=== PATIENT | male | born 1960 | race American Indian/Alaskan Native ===

== ENCOUNTER 2017-03-03 09:48 | Outpatient (CLI) | payer MEDICAID ==
[2017-03-03 11:00] LABS: Blood Urea Nitrogen 16 mg/dL (9-20)
--- NOTE | 2017-03-03 12:03 | Magnetic Resonance Report ---
MRI BRAIN WITH AND WITHOUT CONTRAST INDICATION: Multiple sclerosis. COMPARISON: None similar at this institution. FINDINGS: Multiplanar and multisequence MRI of the brain performed before and after 15 mL MultiHance intravenously demonstrates normal ventricles and sulci without acute infarct, hemorrhage, mass effect or midline shift. No abnormal extra-axial masses or fluid collections. Normal major intracranial vascular flow voids. No suspicious abnormal enhancement. Normal posterior fossa structures with symmetric seventh and eighth nerve complexes. Symmetric, grossly unremarkable eye globes. Mild right maxillary sinusitis inferiorly possible. 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 Mild right mastoiditis. Cleared left mastoid air cells. Normal midline structures without evidence of Chiari malformation. CONCLUSION: No acute intracranial MRI abnormality with few other incidental findings, as described. Thank you for the opportunity to participate in this patient's care.
== END 2017-03-03 09:49 | disposition home or self-care (01) ==
LOC: MRI 09:48
PROVIDERS: ATTEND Psychiatry & Neurology Neurology
DX: G35 Multiple sclerosis (principal); J32.0 Chronic maxillary sinusitis; H70.91 Unspecified mastoiditis, right ear
CPT/HCPCS: 36415; 70553; 82565; 84520; A9577

== ENCOUNTER 2017-03-16 07:04 | Day surgery (SDC) | payer MEDICAID ==
[2017-03-16] MEDS ORDERED: NACL 0.9% 500 ML 500 ML IV SCH (08:00)
[2017-03-16 08:12] LABS: Basophils % (Auto) 0.8 % (0.0-1.8); Eosinophils % (Auto) 1.6 % (0.0-4.3); Hematocrit 43.2 % (35.5-45.6); Hemoglobin 14.1 gm/dl (11.8-15.2); Mean Corpuscular HGB Conc 33 % (32-34); Mean Corpuscular Hemoglobin 29 pg (28-32); Mean Corpuscular Volume 87 fl (84-94); Platelet Count 301 K/mm3 (140-440); Red Blood Count 4.94 M/mm3 (3.65-5.03); Red Cell Distribution Width 14.4 % (13.2-15.2); White Blood Count 5.8 K/mm3 (4.5-11.0)
[2017-03-16 08:22] LABS: INR 1.03 (0.87-1.13)
[2017-03-16 08:23] LABS: Anion Gap 19 mmol/L; Blood Urea Nitrogen 12 mg/dL (9-20); Carbon Dioxide 25 mmol/L (22-30); Chloride 102.9 mmol/L (98-107); Glucose 141 mg/dL (75-100); Potassium 4.4 mmol/L (3.6-5.0); Sodium 142 mmol/L (137-145)
[2017-03-16] MEDS ORDERED: ECOTRIN PO ONE (09:00)
[2017-03-16] MEDS ORDERED: CALAN ONE (09:26)
[2017-03-16] MEDS ORDERED: XYLOCAINE 2% INFILTRATI ONE (09:26)
[2017-03-16] MEDS ORDERED: HEPARIN/NS 5000 UNIT/500ML(CATH LAB) 1,000 ML IR ONE (09:26)
[2017-03-16] MEDS ORDERED: HEPARIN 10,000 UNITS/10 ML ONE (09:26)
[2017-03-16] MEDS ORDERED: VERSED ONE (09:27)
[2017-03-16] MEDS ORDERED: NITROGLYCERIN SYRINGE 3 ML ONE (09:27)
[2017-03-16] MEDS ORDERED: SUBLIMAZE ONE (09:27)
--- NOTE | 2017-03-16 10:34 | Discharge Summary ---
Short Stay Discharge Plan Activity: advance as tolerated Weight Bearing Status: Full Weight Bearing Diet: low fat, low cholesterol, low salt, diabetic Wound: keep clean and dry Special Instructions: no heavy lifting (3 days), hold Metformin (48hrs only) Follow up with: VASILE JANG MD [Primary Care Provider] - 7 Days BANDAR CAMARA MD [Staff Physician] - 7 Days
[2017-03-16] MEDS ORDERED: NACL 0.9% 1000 ML 1,000 ML IV SCH (11:00)
--- NOTE | 2017-03-16 13:43 | Cardiac Catherization Report ---
CARDIAC CATHETERIZATION REASON FOR PROCEDURE: Chest pain. PROCEDURE: The patient was prepped and draped in a sterile fashion after informed consent. The right radial artery was entered using the Seldinger technique followed by placement of a 6-Urdu hydrophilic sheath. Routine radial cocktail was administered via the sheath. The right coronary artery was inadvertently cannulated using a #4 left Lucian catheter. Following that, a #3.0 left Lucian was used for left coronary angiography. Pigtail catheter was used for left ventricle angiography. The catheters were removed, sheath removed, and hemostasis achieved using manual compression. The patient was returned to the postprocedure unit in stable condition. There were no complications. FINDINGS: HEMODYNAMICS: Left ventricle end diastolic pressure was 25 to 30, following coronary angiography. Ascending aortic pressure was 172/99. There was no significant pressure gradient on pullback across the aortic valve. CORONARY ANGIOGRAPHY: The left main coronary artery was angiographically normal. The proximal left anterior descending artery was angiographically normal. large mid diagonal branch, we noted mild narrowing of the mid LAD. Apart from the narrowing of the LAD after the mid diagonal branch, the rest of the LAD system and diagonal branches were angiographically normal. The circumflex artery and its obtuse marginal branches were angiographically normal. The right coronary artery was dominant and similarly angiographically normal. There was normal left ventricular systolic function, ejection fraction 60%. CONCLUSION: 1. Mild narrowing of the mid LAD, otherwise essentially angiographically normal coronary arteries. 2. Normal left ventricular systolic function, ejection fraction 60%. RECOMMENDATION: Risk factor modification and medical therapy. [facility]# [id number] CA/NTS
[2017-03-16 14:31] VITALS: BP 133/84
== END 2017-03-16 14:45 | disposition home or self-care (01) ==
LOC: CATHLABREC 07:04
PROVIDERS: ATTEND Internal Medicine Cardiovascular Disease
DX: I25.10 Atherosclerotic heart disease of native coronary artery without angina pectoris (principal); E11.40 Type 2 diabetes mellitus with diabetic neuropathy, unspecified; I10 Essential (primary) hypertension; E78.5 Hyperlipidemia, unspecified; Z79.84 Long term (current) use of oral hypoglycemic drugs; Z79.82 Long term (current) use of aspirin; Z79.899 Other long term (current) drug therapy; Z98.890 Other specified postprocedural states
CPT/HCPCS: 36415; 80048; 85025; 85610; 85730; 93005; 93010; 93458; C1894; J1644; J2250; J3010; J7040; Q9967

== ENCOUNTER 2017-08-11 11:15 | Emergency (ER) | payer SELFPAY ==
[2017-08-11 12:17] LABS: Eosinophils # (Auto) 0.1 K/mm3 (0.0-0.4); Eosinophils % (Auto) 1.6 % (0.0-4.3); Hematocrit 42.1 % (35.5-45.6); Hemoglobin 14.1 gm/dl (11.8-15.2); Lymphocytes # (Auto) 1.6 K/mm3 (1.2-5.4); Lymphocytes % (Auto) 35.4 % (13.4-35.0); Mean Corpuscular HGB Conc 34 % (32-34); Mean Corpuscular Hemoglobin 30 pg (28-32); Mean Corpuscular Volume 88 fl (84-94); Monocytes # (Auto) 0.3 K/mm3 (0.0-0.8); Monocytes % (Auto) 6.4 % (0.0-7.3); Platelet Count 287 K/mm3 (140-440); Red Blood Count 4.77 M/mm3 (3.65-5.03); Red Cell Distribution Width 14.3 % (13.2-15.2)
[2017-08-11 12:26] LABS: BUN/Creatinine Ratio 10; Blood Urea Nitrogen 10 mg/dL (9-20); Calcium 9.6 mg/dL (8.4-10.2); Hemolysis Index 5
[2017-08-11 12:27] LABS: INR 0.99 (0.87-1.13)
[2017-08-11 12:28] LABS: Partial Thromboplastin Time 27.2 Sec. (24.2-36.6)
--- NOTE | 2017-08-11 12:52 | Cat Scan Report ---
CT HEAD WITHOUT CONTRAST: HISTORY: Headache. TECHNIQUE: Sequential 2.5mm CT images. COMPARISON: none. FINDINGS: Cerebral Parenchyma: Within normal limits. Cerebellum: Within normal limits. Brainstem: Within normal limits. Ventricles: Normal. Sella: Normal. Extra-axial spaces: Normal. Basal Cisterns: Normal. Intracranial Hemorrhage: None. Midline Shift: None. Calvarium: Normal. Sinuses: Normal. Mastoid Air Cells: Normal. Visualized Orbits: Normal. IMPRESSION: Cranial CT scan within normal limits.
[2017-08-11 22:25] VITALS: BP 190/108
--- NOTE | 2017-08-11 23:43 | Emergency Department Report ---
ED General Adult HPI - General Chief complaint: Headache Stated complaint: NERVE PAIN Time Seen by Provider: 08/11/17 22:37 Source: patient Mode of arrival: Ambulatory Limitations: No Limitations - History of Present Illness Initial comments: Patient with history of chronic nerve pain says he takes gabapentin Elavil he says he needs something else C7 and acute attack. Patient has been seen by neurologist had a normal MRI in the recent past denies any chest pain denies any speech or visual complaints denies any gait problems denies any weakness denies any chest pain or abdominal pain or other complaints -: days(s), week(s), month(s), unknown Severity scale (0 -10): 5 - Related Data Home Medications Medication Instructions Recorded Confirmed Last Taken AtorvaSTATin [Lipitor] 10 mg PO QHS 03/16/17 03/16/17 03/15/17 Brimonidine Tartrate [Brimonidine 1 drop OU BID 03/16/17 03/16/17 03/15/17 Tartrate 0.2%] Epitol 200 mg PO BID 03/16/17 03/14/17 Latanoprost 0.005% [Xalatan 0.005%] 1 drop OP DAILY 03/16/17 03/16/17 03/15/17 Losartan [Cozaar] 25 mg PO QDAY 03/16/17 03/16/17 03/15/17 Metoprolol [Lopressor TAB] 25 mg PO DAILY 03/16/17 03/16/17 03/15/17 Timolol 0.5% [Timoptic] 1 drops OP BID 03/16/17 03/16/17 03/15/17 Previous Rx's Medication Instructions Recorded Last Taken Type traMADol [Ultram] 50 mg PO Q6HR PRN 4 Days #14 tablet 08/11/17 Unknown Rx Allergies Allergy/AdvReac Type Severity Reaction Status Date / Time No Known Allergies Allergy Unverified 03/03/17 09:48 ED Review of Systems ROS: Stated complaint: NERVE PAIN Other details as noted in HPI Comment: All other systems reviewed and negative Respiratory: denies: shortness of breath, SOB with exertion, SOB at rest, stridor, wheezing Cardiovascular: denies: chest pain, palpitations, dyspnea on exertion, orthopnea , edema, syncope, paroxysmal nocturnal dyspnea Gastrointestinal: denies: abdominal pain, nausea, vomiting, diarrhea, constipation, hematemesis, melena, hematochezia Musculoskeletal: denies: joint swelling, arthralgia, myalgia Skin: denies: change in color, change in hair/nails, pruritus Neurological: paresthesias. denies: headache, weakness, numbness, confusion, abnormal gait, vertigo Psychiatric: denies: auditory hallucinations, homicidal thoughts, suicidal thoughts ED Past Medical Hx - Past Medical History Previous Medical History?: Yes Hx Hypertension: Yes Hx Heart Attack/AMI: No Hx Diabetes: Yes Hx GERD: Yes Hx Headaches / Migraines: Yes Hx HIV: No Additional medical history: tinnitus - Surgical History Past Surgical History?: Yes Additional Surgical History: Pituirtary surgery and Glacoma surgery - Social History Smoking Status: Never Smoker Substance Use Type: None - Medications Home Medications: Home Medications Medication Instructions Recorded Confirmed Last Taken Type AtorvaSTATin [Lipitor] 10 mg PO QHS 03/16/17 03/16/17 03/15/17 History Brimonidine Tartrate [Brimonidine 1 drop OU BID 03/16/17 03/16/17 03/15/17 History Tartrate 0.2%] Epitol 200 mg PO BID 03/16/17 03/14/17 History Latanoprost 0.005% [Xalatan 0.005%] 1 drop OP DAILY 03/16/17 03/16/17 03/15/17 History Losartan [Cozaar] 25 mg PO QDAY 03/16/17 03/16/17 03/15/17 History Metoprolol [Lopressor TAB] 25 mg PO DAILY 03/16/17 03/16/17 03/15/17 History Timolol 0.5% [Timoptic] 1 drops OP BID 03/16/17 03/16/17 03/15/17 History traMADol [Ultram] 50 mg PO Q6HR PRN 4 Days #14 tablet 08/11/17 Unknown Rx ED Physical Exam - General Limitations: No Limitations General appearance: alert, in no apparent distress - Head Head exam: Present: atraumatic, normocephalic - Eye Eye exam: Present: PERRL, EOMI - ENT ENT exam: Present: normal exam, normal orophraynx, mucous membranes moist - Neck Neck exam: Present: normal inspection. Absent: tenderness, meningismus - Respiratory Respiratory exam: Present: normal lung sounds bilaterally. Absent: respiratory distress, wheezes, rales, rhonchi, stridor, chest wall tenderness, accessory muscle use, decreased breath sounds, prolonged expiratory - Cardiovascular Cardiovascular Exam: Present: regular rate, normal rhythm, normal heart sounds. Absent: irregular rhythm, systolic murmur, diastolic murmur, rubs, gallop - GI/Abdominal GI/Abdominal exam: Present: soft. Absent: distended, tenderness, guarding, rebound, rigid, hyperactive bowel sounds, mass, bruit, pulsatile mass - Extremities Exam Extremities exam: Present: normal inspection, full ROM, normal capillary refill. Absent: tenderness, pedal edema, joint swelling, calf tenderness - Back Exam Back exam: Present: normal inspection, full ROM. Absent: tenderness, CVA tenderness (R), CVA tenderness (L), muscle spasm, paraspinal tenderness, vertebral tenderness - Neurological Exam Neurological exam: Present: alert, oriented X3, CN II-XII intact, normal gait. Absent: motor sensory deficit ED Course Vital Signs 08/11/17 08/11/17 08/11/17 11:43 22:21 22:43 Temperature 99.0 F 97.9 F Pulse Rate 109 H 86 86 Respiratory 18 Rate Blood Pressure 155/92 190/108 Blood Pressure 190/108 [Right] O2 Sat by Pulse 97 98 98 Oximetry - Reevaluation(s) Reevaluation #1: 08/11/17 23:42 CT head was negative per the radiologist ED Medical Decision Making - Lab Data Result diagrams: 08/11/17 11:49 08/11/17 11:49 - Radiology Data Radiology results: report reviewed - Medical Decision Making Patient with chronic neuropathic pain we will add Ultram for pain control he currently is on Neurontin and Elavil he will need to follow up with his neurologist CT scan of process laboratory studies unremarkable no evidence of emergent process identified. Patient is a therefor stable follow-up with his neurologist Critical care attestation.: If time is entered above; I have spent that time in minutes in the direct care of this critically ill patient, excluding procedure time. ED Disposition Clinical Impression: Neuropathic pain Disposition: DC-01 TO HOME OR SELFCARE Is pt being admited?: No Condition: Stable Instructions: Peripheral Neuropathy (ED) Additional Instructions: See her doctor or return if new or alarming symptoms Prescriptions: traMADol [Ultram] 50 mg PO Q6HR PRN 4 Days #14 tablet PRN Reason: Pain Referrals: VASILE JANG MD [Primary Care Provider] - 3-5 Days Time of Disposition: 23:44
== END 2017-08-12 00:17 | disposition home or self-care (01) ==
LOC: ED 11:15
DX: G62.9 Polyneuropathy, unspecified (principal); G89.29 Other chronic pain; I10 Essential (primary) hypertension; E11.9 Type 2 diabetes mellitus without complications; K21.9 Gastro-esophageal reflux disease without esophagitis; G43.909 Migraine, unspecified, not intractable, without status migrainosus
CPT/HCPCS: 36415; 70450; 80048; 82962; 85025; 85610; 85730

== ENCOUNTER 2018-04-11 15:48 | Emergency (ER) | payer MEDICARE ==
[2018-04-11 16:08] VITALS: BP 176/91
[2018-04-11 16:37] LABS: Basophils # (Auto) 0.1 K/mm3 (0.0-0.1); Basophils % (Auto) 0.8 % (0.0-1.8); Eosinophils # (Auto) 0.1 K/mm3 (0.0-0.4); Eosinophils % (Auto) 0.9 % (0.0-4.3); Hematocrit 42.3 % (35.5-45.6); Hemoglobin 14.6 gm/dl (11.8-15.2); Lymphocytes # (Auto) 1.9 K/mm3 (1.2-5.4); Lymphocytes % (Auto) 28.1 % (13.4-35.0); Mean Corpuscular HGB Conc 35 % (32-34); Mean Corpuscular Hemoglobin 31 pg (28-32); Mean Corpuscular Volume 88 fl (84-94); Monocytes # (Auto) 0.5 K/mm3 (0.0-0.8); Monocytes % (Auto) 6.9 % (0.0-7.3); Platelet Count 344 K/mm3 (140-440); Red Blood Count 4.78 M/mm3 (3.65-5.03); Red Cell Distribution Width 14.3 % (13.2-15.2)
[2018-04-11 17:05] LABS: BUN/Creatinine Ratio 15; Blood Urea Nitrogen 12 mg/dL (9-20); Calcium 9.7 mg/dL (8.4-10.2); Hemolysis Index 24
--- NOTE | 2018-04-11 18:37 | Emergency Department Report ---
ED Chest Pain HPI - General Chief Complaint: Chest Pain Stated Complaint: CHEST PAIN/DIZZY Time Seen by Provider: 04/11/18 18:08 Source: patient Mode of arrival: Ambulatory Limitations: No Limitations - History of Present Illness Initial Comments: Patient is a 58-year-old [place] male who has a past medical history of hypertension and diabetes who is presenting with some chest pain. Patient states the pain lasts up to 3 seconds at a time. She denies any chest pain with exertion or shortness of breath nausea vomiting or diaphoresis. Patient states that when he gets the pain is usually after he feels anxiety all over his body. Patient states that sometimes when airplanes go above his head he feels very anxious and nervous. Patient states that very minor things cause these symptoms. Patient states he is compliant with his meds. Patient saw his primary care physician today and they did an EKG and told he had to come to the hospital. - Related Data Home Medications Medication Instructions Recorded Confirmed Last Taken AtorvaSTATin [Lipitor] 10 mg PO QHS 03/16/17 03/16/17 03/15/17 Brimonidine Tartrate [Brimonidine 1 drop OU BID 03/16/17 03/16/17 03/15/17 Tartrate 0.2%] Epitol 200 mg PO BID 03/16/17 03/14/17 Latanoprost 0.005% 1 drop OP DAILY 03/16/17 03/16/17 03/15/17 Losartan [Cozaar] 25 mg PO QDAY 03/16/17 03/16/17 03/15/17 Metoprolol [Lopressor TAB] 25 mg PO DAILY 03/16/17 03/16/17 03/15/17 Timolol 0.5% [Timoptic] 1 drops OP BID 03/16/17 03/16/17 03/15/17 Previous Rx's Medication Instructions Recorded Last Taken Type traMADol [Ultram] 50 mg PO Q6HR PRN 4 Days #14 tablet 08/11/17 Unknown Rx ALPRAZolam [Xanax TAB] 0.25 mg PO BID PRN #10 tab 04/11/18 Unknown Rx Gabapentin [Neurontin] 300 mg PO BID #60 cap 04/11/18 Unknown Rx Allergies Allergy/AdvReac Type Severity Reaction Status Date / Time No Known Allergies Allergy Verified 04/11/18 16:04 Heart Score - HEART Score History: Slightly suspicious EKG: Non-specific Age: 45-65 Risk factors: 1-2 risk factors Troponin: < normal limit HEART Score: 3 ED Review of Systems ROS: Stated complaint: CHEST PAIN/DIZZY Other details as noted in HPI Comment: All other systems reviewed and negative ED Past Medical Hx - Past Medical History Hx Hypertension: Yes Hx Heart Attack/AMI: No Hx Diabetes: Yes Hx GERD: Yes Hx Headaches / Migraines: Yes Hx HIV: No Additional medical history: tinnitus - Surgical History Additional Surgical History: Pituirtary surgery and Glacoma surgery - Social History Smoking Status: Never Smoker Substance Use Type: None - Medications Home Medications: Home Medications Medication Instructions Recorded Confirmed Last Taken Type AtorvaSTATin [Lipitor] 10 mg PO QHS 03/16/17 03/16/17 03/15/17 History Brimonidine Tartrate [Brimonidine 1 drop OU BID 03/16/17 03/16/17 03/15/17 History Tartrate 0.2%] Epitol 200 mg PO BID 03/16/17 03/14/17 History Latanoprost 0.005% 1 drop OP DAILY 03/16/17 03/16/17 03/15/17 History Losartan [Cozaar] 25 mg PO QDAY 03/16/17 03/16/17 03/15/17 History Metoprolol [Lopressor TAB] 25 mg PO DAILY 03/16/17 03/16/17 03/15/17 History Timolol 0.5% [Timoptic] 1 drops OP BID 03/16/17 03/16/17 03/15/17 History traMADol [Ultram] 50 mg PO Q6HR PRN 4 Days #14 tablet 08/11/17 Unknown Rx ALPRAZolam [Xanax TAB] 0.25 mg PO BID PRN #10 tab 04/11/18 Unknown Rx Gabapentin [Neurontin] 300 mg PO BID #60 cap 04/11/18 Unknown Rx ED Physical Exam - General Limitations: No Limitations General appearance: alert, in no apparent distress - Head Head exam: Present: atraumatic, normocephalic - Eye Eye exam: Present: normal appearance - ENT ENT exam: Present: mucous membranes moist - Neck Neck exam: Present: normal inspection - Respiratory Respiratory exam: Present: normal lung sounds bilaterally. Absent: respiratory distress, wheezes, rales, rhonchi - Cardiovascular Cardiovascular Exam: Present: regular rate, normal rhythm. Absent: systolic murmur, diastolic murmur, rubs, gallop - GI/Abdominal GI/Abdominal exam: Present: soft, normal bowel sounds. Absent: distended, tenderness, guarding, rebound - Rectal Rectal exam: Present: deferred - Extremities Exam Extremities exam: Present: normal inspection - Back Exam Back exam: Present: normal inspection - Neurological Exam Neurological exam: Present: alert, oriented X3 - Psychiatric Psychiatric exam: Present: normal affect, normal mood - Skin Skin exam: Present: warm, dry, intact, normal color. Absent: rash ED Course Vital Signs 04/11/18 16:04 Temperature 98.8 F Pulse Rate 88 Respiratory 16 Rate Blood Pressure 176/91 O2 Sat by Pulse 99 Oximetry ED Medical Decision Making - Lab Data Result diagrams: 04/11/18 16:27 04/11/18 16:27 Lab Results 04/11/18 04/11/18 Range/Units 16:27 16:27 WBC 6.8 (4.5-11.0) K/mm3 RBC 4.78 (3.65-5.03) M/mm3 Hgb 14.6 (11.8-15.2) gm/dl Hct 42.3 (35.5-45.6) % MCV 88 (84-94) fl MCH 31 (28-32) pg MCHC 35 H (32-34) % RDW 14.3 (13.2-15.2) % Plt Count 344 (140-440) K/mm3 Lymph % (Auto) 28.1 (13.4-35.0) % [place] % (Auto) 6.9 (0.0-7.3) % Eos % (Auto) 0.9 (0.0-4.3) % Baso % (Auto) 0.8 (0.0-1.8) % Lymph # 1.9 (1.2-5.4) K/mm3 [place] # 0.5 (0.0-0.8) K/mm3 Eos # 0.1 (0.0-0.4) K/mm3 Baso # 0.1 (0.0-0.1) K/mm3 Seg Neutrophils % 63.3 (40.0-70.0) % Seg Neutrophils # 4.3 (1.8-7.7) K/mm3 Sodium 136 L (137-145) mmol/L Potassium 4.5 (3.6-5.0) mmol/L Chloride 96.4 L (98-107) mmol/L Carbon Dioxide 29 (22-30) mmol/L Anion Gap 15 mmol/L BUN 12 (9-20) mg/dL Creatinine 0.8 (0.8-1.5) mg/dL Estimated GFR > 60 ml/min BUN/Creatinine Ratio 15 % Glucose 114 H (75-100) mg/dL Calcium 9.7 (8.4-10.2) mg/dL Troponin T < 0.010 (0.00-0.029) ng/mL - EKG Data -: EKG Interpreted by Me EKG shows normal: sinus rhythm, axis, intervals, QRS complexes, ST-T waves - EKG Data Interpretation: other (patient is a right bundle branch block. There is no change in the EKG from the EKG he had 03/16/2017) - Radiology Data Radiology results: report reviewed (patient's cath report from 03/16/2017 was interpreted as essentially normal coronary arteries) - Medical Decision Making Patient most likely is having anxiety type symptoms causing his chest discomfort. The patient has a normal cath within the last year and negative troponin here is also no change in his EKG. Patient be discharged home with a prescription for Xanax. Patient also is asking for medication for peripheral neuropathy and patient be started on gabapentin. Critical care attestation.: If time is entered above; I have spent that time in minutes in the direct care of this critically ill patient, excluding procedure time. ED Disposition Clinical Impression: Atypical chest pain, Anxiety reaction Diabetic neuropathy Qualifiers: Diabetes mellitus type: type 2 Diabetes mellitus complication detail: diabetic polyneuropathy Qualified Code(s): E11.42 - Type 2 diabetes mellitus with diabetic polyneuropathy Disposition: DC-01 TO HOME OR SELFCARE Is pt being admited?: No Does the pt Need Aspirin: No Condition: Stable Instructions: Chest Pain (ED), Diabetes Mellitus Type 2 in Adults (ED), Anxiety (ED) Prescriptions: ALPRAZolam [Xanax TAB] 0.25 mg PO BID PRN #10 tab PRN Reason: Anxiety Gabapentin [Neurontin] 300 mg PO BID #60 cap Referrals: PRIMARY CARE, [Primary Care Provider] - 3-5 Days Time of Disposition: 18:37
== END 2018-04-11 18:50 | disposition home or self-care (01) ==
LOC: ED 15:48
DX: R07.89 Other chest pain (principal); F41.9 Anxiety disorder, unspecified; E11.42 Type 2 diabetes mellitus with diabetic polyneuropathy; I10 Essential (primary) hypertension; K21.9 Gastro-esophageal reflux disease without esophagitis; G43.909 Migraine, unspecified, not intractable, without status migrainosus
CPT/HCPCS: 36415; 80048; 84484; 85025; 93005; 93010